=== PATIENT | female | born 1985 | race Caucasian/White ===

== ENCOUNTER 2020-06-07 07:07 | Inpatient (IN) | payer BC ==
[2020-06-07] MEDS ORDERED: Nalbuphine 10 MG/1 ML Vial IVPUSH PRN (08:54)
[2020-06-07] MEDS ORDERED: Sodium Chloride 0.9% 10 ML Syringe FLUSH PRN (08:54)
[2020-06-07] MEDS ORDERED: Misoprostol 200 MCG Tab RECTAL ONE (08:57)
[2020-06-07] MEDS ORDERED: Oxytocin/Lactated Ringers 10 UNIT/1,000 ML BAG IV SCH (09:00)
[2020-06-07] MEDS ORDERED: Oxytocin/Lactated Ringers 20 UNIT/1,000 ML BAG IV SCH ×2 (09:00→18:30)
--- NOTE | 2020-06-07 09:01 | PCM.LDHP ---
L&D History of Present Illness - General Date of Service: 06/07/20 Admit Problem/Dx: Patient Status Order with Admit Dx/Problem 06/07/20 08:55 Patient Status [ADT] Routine Admission Diagnosis/Problem Admission Diagnosis/Problem 39 weeks gestation of Source of Information: Patient History Limitations: Reports: No Limitations - History of Present Illness Introduction:: Kelly Coleman is a 34-year-old -0-3-4 female at 39 weeks 2 days (COLIN 06/12/2020) by an 11-week ultrasound who presents for an elective induction of labor. She reports that she has been having irregular contractions since her last visit but nothing that has been very painful or strong. She denies any leaking of fluid or vaginal bleeding. Reports good movement. Timing/Duration: Reports: intermittent Location, : Reports: Pelvic Quality: Reports: Pressure Severity: Mild Improves with: Reports: None Worsens with: Reports: None Associated Symptoms: Denies: vaginal bleeding, vaginal discharge, vaginal fluid Present Illness Comments:: Kelly Coleman is a 34-year-old -0-3-4 female at 39 weeks 2 days (COLIN 06/12/2020) by an 11-week ultrasound who presents for an elective induction of labor. She has had overall routine care throughout the with myself, Dr. Bryan, and with Dr. Chung. Her has been complicated by abnormal Pap smear and positive chlamydia infection. The chlamydia infection was diagnosed on 11/22/2019 and she was treated with azithromycin on 11/28/2019. She had a negative test of cure at 36 weeks gestational age. She had colposcopy done for HGSIL Pap smear that showed ROMULO-2-3 as well as ROMULO-1. ECC was not performed. Patient is planning to have LEEP after delivery. She had repeat colposcopy without biopsies in late that did not show any progression of the cervical abnormalities. She had an elevated 1 hour glucose tolerance test with a value of 137 but did not get a 3-hour glucose tolerance test done. She does have history of Graves' disease but her thyroid levels have been normal throughout the . Her GBS swab was negative. Her anatomy ultra sound was normal and did not show any abnormalities. Her is complicated by: * ROMULO-2-3 on biopsy of her cervix that was done on colposcopy on 12/26/2019. She had repeat colposcopy towards the end of the that did not show any significant changes in the cervix. Plan for LEEP procedure after delivery * Chlamydia infection during with treatment. She had negative test of cure on 12/26/2019 with negative test at 36 weeks gestational age. * Elevated 1 hour glucose tolerance test at 33 weeks gestational age with a value of 137. She did not have 3-hour glucose tolerance test done. * History of MRSA staph infection in 2009 with negative MRSA culture prior to delivery. 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 G1: 05/17/2008, 38 weeks, , female infant, 7 pounds 3 ounces, epidural for anesthesia, no complications G2: 10/05/2009, 4 weeks, miscarriage G3: 04/17/2011, 38 weeks, , male , 7 pounds 5 ounces, epidural for anesthesia, uterine atony after delivery and treated with medications G4: 02/07/2013, 11 weeks, miscarriage G5: 01/09/2014, 39 weeks, , female infant, 6 pounds 7 ounces, epidural for anesthesia, contractions starting at 6 months G6: 12/28/2014, 5 weeks, miscarriage G7: 12/18/2015, 39 weeks 1 day, , female infant, 6 pounds 14 ounces, epidural for anesthesia, no complications G8: Current labs Blood type: O+ Antibody screen: Negative First trimester hematocrit/hemoglobin: 40.5%/13.4 on 11/22/2019 Platelets: 284 on 11/22/2019 Urine culture: Mixed prudence suggestive of contamination Rubella status: Immune Hepatitis B surface antigen: Negative RPR: Negative HIV: Negative Gonorrhea: Negative Chlamydia: Positive, treated with azithromycin Anatomy ultrasound: Normal anatomy, anterior placenta Repeat gonorrhea: Negative on 12/26/2019 Repeat Chlamydia: Negative on 12/26/2019 One hour glucose tolerance test: 137 at 33 weeks gestational age Third trimester hematocrit/hemoglobin: 35.3%/11.4 on 04/26/2020 Platelets: 320 on 04/26/2020 GBS status: Negative - Related Data Allergies/Adverse Reactions: Allergies Allergy/AdvReac Type Severity Reaction Status Date / Time lidocaine Allergy Rash Verified 06/07/20 09:06 penicillin Allergy Hives Verified 06/07/20 09:06 Home Medications: Home Meds Propranolol [Inderal] 20 mg PO TID PRN 12/07/14 [History] Acetaminophen [Tylenol] 650 mg PO Q6H PRN #0 tablet 12/20/15 [Rx] Benzocaine/Menthol [Dermoplast Pain Relief [place]] 1 spray TOP ASDIRECTED PRN #0 canister 12/20/15 [Rx] Docusate Sodium [Colace] 100 mg PO BID PRN #0 cap 12/20/15 [Rx] Ibuprofen [IJD: Ibuprofen] 200 - 600 mg PO Q6H PRN #0 tablet 12/20/15 [Rx] witch Carmen [Tucks] 1 pad TOP ASDIRECTED PRN #0 pad 12/20/15 [Rx] Past Medical History Cardiovascular History: Reports: Other (See Below) Other Cardiovascular History: Tachycardia at times FIRE CONTROL TECHNICIAN B History: Reports: , Spontaneous , Other (See Below) : 8 Para: 4 Other OB/BYN History: D&C 2012 Endocrine/Metabolic History: Reports: Other (See Below) Other Endocrine/Metabolic History: Graves Disease Other Oncologic History: cancerous mole removed - Past Surgical History Cardiovascular Surgical History: Reports: None GI Surgical History: Reports: None Female Surgical History: Reports: None Dermatological Surgical History: Reports: Other (See Below) Social & Family History - Family History Family Medical History: No Pertinent Family History - Tobacco Use Tobacco Use Status *Q: Never Tobacco User Tobacco Use Within Last Twelve Months: No - Tobacco Core Measures Tobacco Use/Smoking Within Last 30 Days: No Smokeless Tobacco Use in Last 30 Days: No - Caffeine Use Caffeine Use: Reports: None - Alcohol Use Alcohol Use History: No - Recreational Drug Use Recreational Drug Use: No Drug Use in Last 12 Months: No - Living Situation & Occupation Living situation: Reports: , with Spouse, with Family H&P Review of Systems - Review of Systems: Review Of Systems: See Below General: Denies: Fever, Chills, Malaise, Fatigue HEENT: Denies: Headaches, Rhinitis, Post Nasal Drip, Sinus Congestion, Sore Throat, Visual Changes Pulmonary: Denies: Shortness of Breath, Wheezing, Pleuritic Chest Pain Cardiovascular: Denies: Chest Pain, Palpitations, Dyspnea on Exertion Gastrointestinal: Reports: Diarrhea (one episode earlier this week). Denies: Abdominal Pain, Constipation, Nausea, Vomiting Genitourinary: Denies: Dysuria, Frequency, Burning, Pain, Urgency Musculoskeletal: Reports: Back Pain (and hip pain of ) Skin: Denies: Rash, Lesions Psychiatric: Denies: Depression, Anxiety Neurological: Denies: Dizziness, Headache L&D Exam - Exam Exam: See Below - Vital Signs Weight: 84.368 kg - OB Specific Contraction Duration (sec): 30-45 Contraction Frequency (min): 3-4 Contraction Intensity: Mild Movement: Active Heart Tones: Present Heart Tones per Min: 125 (+15 x 15 accelerations, no decelerations) Heart Rate (FHR) Variability: Moderate (6-25 bmp) Presentation: Vertex Estimated Weight: 7-7.5 pounds by Jt - Costello Score Costello Score Cervix Position: Midposition Costello Score Consistency: Soft Costello Score Effacement: 31-50% (40) Costello Score Dilation: 1-2 cm (1 cm) Costello Score Infant's Station: -3 (-4) Costello Score Total: 5 - Exam General: Alert, Oriented HEENT: Conjunctiva Clear, EOMI Neck: Supple, Trachea Midline Lungs: Clear to Auscultation, Normal Respiratory Effort Cardiovascular: Regular Rate, Regular Rhythm GI/Abdominal Exam: Soft, Non-Tender, No Distention, Other (Gravid). No: Guarding, Rigid, Rebound Genitourinary: Normal external exam, Cervical dilitation (1 cm) Extremities: Normal Inspection, Pedal Edema (1+) Skin: Warm, Dry, Intact Psychiatric: Alert, Normal Affect, Normal Mood - Problem List (1) Chlamydia infection affecting in first trimester SNOMED Code(s): 64237076, 582889697 ICD Code: O98.811 - OTH MATERNAL INFEC/PARASTC DISEASES COMP PREG, FIRST TRI; A74.9 - CHLAMYDIAL INFECTION, UNSPECIFIED Status: Acute Current Visit: Yes (2) ROMULO II (cervical intraepithelial neoplasia II) SNOMED Code(s): 946328398 ICD Code: N87.1 - MODERATE CERVICAL DYSPLASIA Status: Acute Current Visit: Yes (3) ROMULO III (cervical intraepithelial neoplasia III) Status: Acute Current Visit: Yes (4) Abnormal glucose tolerance test (GTT) during , antepartum Status: Acute Current Visit: Yes (5) History of MRSA infection SNOMED Code(s): 157406649, 079938518 ICD Code: Z86.14 - PERSONAL HISTORY OF METHICILLIN RESIS STAPH INFECTION Status: Acute Current Visit: Yes (6) 39 weeks gestation of SNOMED Code(s): 66364595 ICD Code: Z3A.39 - 39 WEEKS GESTATION OF Status: Acute Current Visit: No Problem List Initiated/Reviewed/Updated: Yes Orders Last 24hrs: Active Orders 24 hr Category Date Time Status Patient Status [ADT] Routine ADT 06/07/20 08:55 Ordered Activity as Tolerated [RC] PFP Care 06/07/20 08:54 Ordered Communication Order [RC] ASDIRECTED Care 06/07/20 08:54 Ordered Heart Tones [RC] ASDIRECTED Care 06/07/20 08:55 Ordered Non Stress Test [RC] PER UNIT ROUTINE Care 06/07/20 08:54 Ordered Notify Provider Vital Signs [RC] PRN Care 06/07/20 08:56 Ordered Notify Provider [RC] PFP Care 06/07/20 08:54 Ordered Notify Provider [RC] PRN Care 06/07/20 08:54 Ordered Peripheral IV Care [RC] . DIRECTED Care 06/07/20 08:55 Ordered Pump Management, Intrathecal [RC] ASDIRECTED Care 06/07/20 08:56 Ordered Urinary Catheter Assessment [RC] ASDIRECTED Care 06/07/20 08:54 Ordered Vital Signs [RC] PER UNIT ROUTINE Care 06/07/20 08:54 Ordered Regular Diet [DIET] Diet 06/07/20 Breakfast Ordered CBC WITH AUTO DIFF [HEME] Routine Lab 06/07/20 08:54 Ordered CORONAVIRUS COVID-19 ISHMAEL [MOLEC] Stat Lab 06/07/20 07:21 Received RAPID PLASMA REAGIN,RPR [CHEM] Routine Lab 06/07/20 08:54 Ordered TYPE AND SCREEN [BBK] Routine Lab 06/07/20 08:59 Ordered Lactated Ringers [Ringers, Lactated] 1,000 ml Med 06/07/20 09:00 Ordered IV ASDIRECTED Nalbuphine [Nubain] Med 06/07/20 08:54 Ordered 10 mg IVPUSH Q2H PRN Oxytocin/Lactated Ringers [Pitocin in LR 10 Units/1,000 Med 06/07/20 09:00 Ordered ML] 10 unit in 1,000 ml IV TITRATE Oxytocin/Lactated Ringers [Pitocin in LR 20 Units/1,000 Med 06/07/20 09:00 Ordered ML] 20 unit in 1,000 ml IV .CONTINUOUS Sodium Chloride 0.9% [Saline Flush] Med 06/07/20 08:54 Ordered 10 ml FLUSH ASDIRECTED PRN miSOPROStoL [Cytotec] Med 06/07/20 08:57 Once 1,000 mcg RECTAL ONETIME ONE Electronic Heart Tones Ext w TOCO [WOMSER] Ot 06/07/20 08:54 Ordered Routine Electronic Heart Tones Internal [WOMSER] Per Unit Ot 06/07/20 08:54 Ordered Routine Peripheral IV Insertion Adult [OM.PC] Routine Ot 06/07/20 08:54 Ordered Resuscitation Status Routine Resus Stat 06/07/20 08:54 Ordered Medication Orders Lactated Ringer's (Ringers, Lactated) 1,000 mls @ 100 mls/hr IV ASDIRECTED SHUKRI Oxytocin/Lactated Ringer's (Pitocin In Lr 10 Units/1,000 Ml) 10 unit in 1,000 mls @ 12 mls/hr IV TITRATE SHUKRI; Protocol Oxytocin/Lactated Ringer's (Pitocin In Lr 20 Units/1,000 Ml) 20 unit in 1,000 mls @ 100 mls/hr IV .CONTINUOUS SHUKRI Misoprostol (Misoprostol 200 Mcg Tab) 1,000 mcg RECTAL ONETIME ONE Stop: 06/07/20 08:58 Nalbuphine HCl (Nalbuphine 10 Mg/1 Ml Vial) 10 mg IVPUSH Q2H PRN PRN Reason: Pain Sodium Chloride (Sodium Chloride 0.9% 10 Ml Syringe) 10 ml FLUSH ASDIRECTED PRN PRN Reason: Keep Vein Open Assessment/Plan Comment:: Kelly Coleman is a 34-year-old -0-3-4 female at 39 weeks 2 days (COLIN 06/12/2020) by an 11-week ultrasound who presents for an elective induction of labor. Refer to observation for elective induction of labor Start Pitocin for induction of labor Continuous monitoring Place IV and have Lactated Ringer's at 125 ml/hr May have small amounts of regular diet Activity as tolerated May have epidural as desired Plans to breast-feed after delivery Plan for artificial rupture membranes once cervix is more dilated Anticipate vaginal delivery unless otherwise indicated Roland Bryan MD 10:52 AM 06/07/2020
[2020-06-07] MEDS: Lactated Ringers 1,000 ML IV SCH ×3 (09:14→12:19)
[2020-06-07] MEDS ORDERED: fentaNYL 100 MCG/2 ML SDV ONE (11:20)
[2020-06-07] MEDS ORDERED: fentaNYL 100 MCG/2 ML SDV EPIDUR PRN (11:23)
[2020-06-07] MEDS ORDERED: Bupivacaine/fentaNYL/NS 100 ML Bag EPIDUR PRN (11:23)
[2020-06-07] MEDS ORDERED: diphenhydrAMINE 50 MG/ML SDV IVPUSH PRN (11:23)
--- NOTE | 2020-06-07 11:29 | PCM.PREANE ---
Preanesthetic Assessment - Procedure Proposed Procedure: Labor epidural - Anesthesia/Transfusion/Family Hx Anesthesia History: Prior Anesthesia Without Reaction Transfusion History: No Prior Transfusion(s) Type of Transfusion Reactions: Reports: Unknown - Review of Systems General: No Symptoms Pulmonary: No Symptoms Cardiovascular: No Symptoms Gastrointestinal: No Symptoms Neurological: No Symptoms Other: Reports: Thyroid Problems (not on meds currently) - Physical Assessment Vital Signs: Last Vital Signs Temp 99.2 F 06/07/20 08:54 Pulse 91 06/07/20 08:54 Resp 16 06/07/20 08:54 BP 118/78 06/07/20 08:54 Pulse Ox Height: 1.57 m Weight: 84.368 kg ASA Class: 2 Mental Status: Alert & Oriented x3 Airway Class: Mallampati = 2 Dentition: Reports: Normal Dentition Thyro-Mental Finger Breadths: 3 Mouth Opening Finger Breadths: 3 ROM/Head Extension: Full Lungs: Clear to Auscultation, Normal Respiratory Effort Cardiovascular: Regular Rate, Regular Rhythm - Lab Values: Laboratory Last Values POC Glucose 79 mg/dL (70-105) 06/07/20 09:23 SARS-CoV-2 RNA (ISHMAEL) Negative (NEGATIVE) 06/07/20 07:21 Blood Type O POSITIVE 06/07/20 09:11 Gel Antibody Screen Negative 06/07/20 09:11 - Allergies Allergies/Adverse Reactions: Allergies Allergy/AdvReac Type Severity Reaction Status Date / Time lidocaine Allergy Rash Verified 06/07/20 09:06 penicillin Allergy Hives Verified 06/07/20 09:06 - Acknowledgements Anesthesia Type Planned: Epidural Pt an Appropriate Candidate for the Planned Anesthesia: Yes Alternatives and Risks of Anesthesia Discussed w Pt/Guardian: Yes Pt/Guardian Understands and Agrees with Anesthesia Plan: Yes PreAnesthesia Questionnaire Cardiovascular History: Reports: Other (See Below) Other Cardiovascular History: Tachycardia at times 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: , Spontaneous , Other (See Below) Other OB/BYN History: D&C 2013 Endocrine/Metabolic History: Reports: Other (See Below) Other Endocrine/Metabolic History: Graves Disease Other Oncologic History: cancerous mole removed - Past Surgical History GI Surgical History: Reports: None Female Surgical History: Reports: None - SUBSTANCE USE Tobacco Use Status *Q: Never Tobacco User Tobacco Use Within Last Twelve Months: No Second Hand Smoke Exposure: No Recreational Drug Use History: No - HOME MEDS Home Medications: Home Meds Propranolol [Inderal] 20 mg PO TID PRN 12/07/14 [History] Acetaminophen [Tylenol] 650 mg PO Q6H PRN #0 tablet 12/20/15 [Rx] Benzocaine/Menthol [Dermoplast Pain Relief [place]] 1 spray TOP ASDIRECTED PRN #0 canister 12/20/15 [Rx] Docusate Sodium [Colace] 100 mg PO BID PRN #0 cap 12/20/15 [Rx] Ibuprofen [IJD: Ibuprofen] 200 - 600 mg PO Q6H PRN #0 tablet 12/20/15 [Rx] witch Carmen [Tucks] 1 pad TOP ASDIRECTED PRN #0 pad 12/20/15 [Rx] - CURRENT (IN HOUSE) MEDS Current Meds: Current Medications Lactated Ringer's (Ringers, Lactated) 1,000 mls @ 100 mls/hr IV ASDIRECTED SHUKRI Last Admin: 06/07/20 09:14 Dose: 100 mls/hr Documented by: Oxytocin/Lactated Ringer's (Pitocin In Lr 10 Units/1,000 Ml) 10 unit in 1,000 mls @ 12 mls/hr IV TITRATE SHUKRI; Protocol Last Titration: 06/07/20 11:00 Dose: 8 munits/min, 48 mls/hr Documented by: Oxytocin/Lactated Ringer's (Pitocin In Lr 20 Units/1,000 Ml) 20 unit in 1,000 mls @ 100 mls/hr IV .CONTINUOUS SHUKRI Nalbuphine HCl (Nalbuphine 10 Mg/1 Ml Vial) 10 mg IVPUSH Q2H PRN PRN Reason: Pain Sodium Chloride (Sodium Chloride 0.9% 10 Ml Syringe) 10 ml FLUSH ASDIRECTED PRN PRN Reason: Keep Vein Open Discontinued Medications Fentanyl (Fentanyl 100 Mcg/2 Ml Sdv) Confirm Administered Dose 100 mcg .ROUTE .STK-MED ONE Stop: 06/07/20 11:21 Misoprostol (Misoprostol 200 Mcg Tab) 1,000 mcg RECTAL ONETIME ONE Stop: 06/07/20 08:58
[2020-06-07] MEDS: ePHEDrine 50 MG/ML SDV IVPUSH PRN ×2 (12:47→13:03)
--- NOTE | 2020-06-07 14:34 | PCM.PNLD ---
<Navin Brunson - Last Filed: 06/07/20 14:28> Labor Progress Note - VS & Meds Vital Signs: Last Vital Signs Temp 99.2 F 06/07/20 08:54 Pulse 91 06/07/20 08:54 Resp 16 06/07/20 08:54 BP 118/78 06/07/20 08:54 Pulse Ox Active Medications: Current Medications Diphenhydramine HCl (Diphenhydramine 50 Mg/Ml Sdv) 25 mg IVPUSH Q6H PRN PRN Reason: pruritis Ephedrine Sulfate (Ephedrine 50 Mg/Ml Sdv) 5 mg IVPUSH ASDIRECTED PRN PRN Reason: Hypotension Last Admin: 06/07/20 13:03 Dose: 5 mg Documented by: Fentanyl (Fentanyl 100 Mcg/2 Ml Sdv) 100 mcg EPIDUR Q3H PRN PRN Reason: Pain Last Admin: 06/07/20 11:49 Dose: 100 mcg Documented by: Fentanyl/Bupivacaine HCl (Bupivacaine/Fentanyl/Ns 100 Ml Bag) 100 ml EPIDUR ASDIRECTED PRN PRN Reason: Pain Last Admin: 06/07/20 12:14 Dose: 100 ml Documented by: Lactated Ringer's (Ringers, Lactated) 1,000 mls @ 100 mls/hr IV ASDIRECTED SHUKRI Last Admin: 06/07/20 12:19 Dose: 100 mls/hr Documented by: Oxytocin/Lactated Ringer's (Pitocin In Lr 10 Units/1,000 Ml) 10 unit in 1,000 m ls @ 12 mls/hr IV TITRATE SHUKRI; Protocol Last Titration: 06/07/20 14:01 Dose: 16 munits/min, 96 mls/hr Documented by: Oxytocin/Lactated Ringer's (Pitocin In Lr 20 Units/1,000 Ml) 20 unit in 1,000 mls @ 100 mls/hr IV .CONTINUOUS SHUKRI Nalbuphine HCl (Nalbuphine 10 Mg/1 Ml Vial) 10 mg IVPUSH Q2H PRN PRN Reason: Pain Sodium Chloride (Sodium Chloride 0.9% 10 Ml Syringe) 10 ml FLUSH ASDIRECTED PRN PRN Reason: Keep Vein Open Discontinued Medications Fentanyl (Fentanyl 100 Mcg/2 Ml Sdv) Confirm Administered Dose 100 mcg .ROUTE .STK-MED ONE Stop: 06/07/20 11:21 Misoprostol (Misoprostol 200 Mcg Tab) 1,000 mcg RECTAL ONETIME ONE Stop: 06/07/20 08:58 - Uterine Contractions Uterine Monitoring Mode: External [place] Contraction Frequency (min): 2-3 minutes Contraction Duration (sec): 65-70 Contraction Intensity: Mild - Monitoring Monitor Mode: Doppler/Auscultation Heart Rate (FHR) Baseline: 130 Heart Rate (FHR) Variability: Moderate (6-25 bmp) Accelerations: Present, 15x15 Decelerations: Late, Intermittent (<50% x 20 min) (two late declerations after AROM ) Strip Review: Category II - Vaginal Exam Dilation (cm): 4 cm Effacement (Percent): 50% Station: -2 Cervical Position: Midposition Sterile Vaginal Exam Performed By: Roland Bryan (Navin Brunson) - Labor Progress (Free Text) Labor Progress: AROM was performed at approximately 1415 with moderate amount of clear fluid. Mother and baby tolerated the procedure well. <Roland Bryan - Last Filed: 06/07/20 15:37> Labor Progress Note - VS & Meds Vital Signs: Last Vital Signs Temp 37.3 C 06/07/20 08:54 Pulse 91 06/07/20 08:54 Resp 16 06/07/20 08:54 BP 118/78 06/07/20 08:54 Pulse Ox Active Medications: Current Medications Diphenhydramine HCl (Diphenhydramine 50 Mg/Ml Sdv) 25 mg IVPUSH Q6H PRN PRN Reason: pruritis Ephedrine Sulfate (Ephedrine 50 Mg/Ml Sdv) 5 mg IVPUSH ASDIRECTED PRN PRN Reason: Hypotension Last Admin: 06/07/20 13:03 Dose: 5 mg Documented by: Fentanyl (Fentanyl 100 Mcg/2 Ml Sdv) 100 mcg EPIDUR Q3H PRN PRN Reason: Pain Last Admin: 06/07/20 11:49 Dose: 100 mcg Documented by: Fentanyl/Bupivacaine HCl (Bupivacaine/Fentanyl/Ns 100 Ml Bag) 100 ml EPIDUR ASDIRECTED PRN PRN Reason: Pain Last Admin: 06/07/20 12:14 Dose: 100 ml Documented by: Lactated Ringer's (Ringers, Lactated) 1,000 mls @ 100 mls/hr IV ASDIRECTED SHUKRI Last Admin: 06/07/20 12:19 Dose: 100 mls/hr Documented by: Oxytocin/Lactated Ringer's (Pitocin In Lr 10 Units/1,000 Ml) 10 unit in 1,000 mls @ 12 mls/hr IV TITRATE SHUKRI; Protocol Last Titration: 06/07/20 14:01 Dose: 16 munits/min, 96 mls/hr Documented by: Oxytocin/Lactated Ringer's (Pitocin In Lr 20 Units/1,000 Ml) 20 unit in 1,000 mls @ 100 mls/hr IV .CONTINUOUS SHUKRI Nalbuphine HCl (Nalbuphine 10 Mg/1 Ml Vial) 10 mg IVPUSH Q2H PRN PRN Reason: Pain Sodium Chloride (Sodium Chloride 0.9% 10 Ml Syringe) 10 ml FLUSH ASDIRECTED PRN PRN Reason: Keep Vein Open Discontinued Medications Fentanyl (Fentanyl 100 Mcg/2 Ml Sdv) Confirm Administered Dose 100 mcg .ROUTE .STK-MED ONE Stop: 06/07/20 11:21 Last Admin: 06/07/20 15:24 Dose: Not Given Documented by: Misoprostol (Misoprostol 200 Mcg Tab) 1,000 mcg RECTAL ONETIME ONE Stop: 06/07/20 08:58 - Labor Progress (Free Text) Labor Progress: I have seen and evaluated the patient with the medical student and agree with the assessment as above. We will continue with Pitocin for induction of labor and anticipate vaginal delivery unless otherwise indicated. Roland Bryan MD 3:37 PM 06/07/2020
[2020-06-07] MEDS ORDERED: Lidocaine 1.5% with EPINEPHrine 1:200,000 5 ML Amp ONE (16:00)
--- NOTE | 2020-06-07 18:14 | PCM.DEL ---
<Navin Brunson - Last Filed: 06/07/20 18:26> L & D Note - General Info Date of Service: 06/07/20 Mother's Due Date: 06/12/20 - Delivery Note Labor: Spontaneous, Augmented by ARM Delivery Outcome: Livebirth Infant Delivery Method: Spontaneous Vaginal Delivery-Single Delivery Mode: Spontaneous Presentation: Left Occiput Anterior ([facility]) Nuchal Cord: None Anesthesia Type: Epidural Amniotic Fluid Description: Clear Episiotomy Type: None Laceration: None Placenta: Intact, Spontaneous Cord: 3 Vessels Estimated Blood Loss: 1,000 Resuscitation Needed: No : Bulb Syringe, Stimulated, Warmed Provider: Ronni Bates Score 1 min: 8 Score 5 min: 9 Second Stage Interventions: Reports: Encouragement Given Delivery Comments (Free Text/Narrative):: Stage I: Kelly Coleman is a 34-year-old -0-3-4 female at 39 weeks 2 days (COLIN 06/12/2020) by an 11-week ultrasound who presents for an elective induction of labor. Pitocin was given, an epidural was placed and AROM was performed with clear fluid. The patient progressed to complete and pushing. Stage II: of a live male infant weighing 3040 g (6 lbs 11.2 ounces) at 1744 on 06/07/20 in the [facility] with APGARs of 8/9. No nuchal cord present. The infant was placed on the mother's abdomen and was warmed and stimulated. The cord was clamped and cut by the infant's father after a period of delayed cord clamping. Stage III: Placenta was delivered intact, spontaneous. Noted three vessel cord. The vaginal mucosa was inspected and no lacerations were seen. EBL of 1000 mL. Rectal cytotec 1000 micrograms was placed rectally, and Pitocin was started. Fundal massage demonstrated a firm uterus without active bleeding. Mother and stable to recovery. - General Info Date of Service: 06/07/20 - Patient Data Vitals - Most Recent: Last Vital Signs Temp 99.2 F 06/07/20 08:54 Pulse 91 06/07/20 08:54 Resp 16 06/07/20 08:54 BP 118/78 06/07/20 08:54 Pulse Ox Weight - Most Recent: 84.368 kg I&O - Last 24 Hours: Intake & Output 06/07/20 06/07/20 06/07/20 06:59 14:59 22:59 Intake Total 0 Balance 0 Lab Results Last 24 Hours: Laboratory Results - last 24 hr 06/07/20 06/07/20 06/07/20 Range/Units 07:21 09:11 09:11 WBC 8.62 (3.98-10.04) K/mm3 RBC 3.77 L (3.98-5.22) M/mm3 Hgb 10.5 L (11.2-15.7) gm/dl Hct 33.2 L (34.1-44.9) % MCV 88.1 (79.4-94.8) fl MCH 27.9 (25.6-32.2) pg MCHC 31.6 L (32.2-35.5) g/dl RDW Std Deviation 45.2 (36.4-46.3) fL Plt Count 252 (182-369) K/mm3 MPV 10.0 (9.4-12.3) fl Neut % (Auto) 75.7 H (34.0-71.1) % Lymph % (Auto) 15.1 L (19.3-51.7) % [place] % (Auto) 8.2 (4.7-12.5) % Eos % (Auto) 0.2 L (0.7-5.8) Baso % (Auto) 0.2 (0.1-1.2) % Neut # (Auto) 6.52 H (1.56-6.13) K/mm3 Lymph # (Auto) 1.30 (1.18-3.74) K/mm3 [place] # (Auto) 0.71 H (0.24-0.36) K/mm3 Eos # (Auto) 0.02 L (0.04-0.36) K/mm3 Baso # (Auto) 0.02 (0.01-0.08) K/mm3 POC Glucose (70-105) mg/dL SARS-CoV-2 RNA (ISHMAEL) Negative (NEGATIVE) Blood Type O POSITIVE Gel Antibody Screen Negative 06/07/20 06/07/20 06/07/20 Range/Units 09:23 13:09 17:12 WBC (3.98-10.04) K/mm3 RBC (3.98-5.22) M/mm3 Hgb (11.2-15.7) gm/dl Hct (34.1-44.9) % MCV (79.4-94.8) fl MCH (25.6-32.2) pg MCHC (32.2-35.5) g/dl RDW Std Deviation (36.4-46.3) fL Plt Count (182-369) K/mm3 MPV (9.4-12.3) fl Neut % (Auto) (34.0-71.1) % Lymph % (Auto) (19.3-51.7) % [place] % (Auto) (4.7-12.5) % Eos % (Auto) (0.7-5.8) Baso % (Auto) (0.1-1.2) % Neut # (Auto) (1.56-6.13) K/mm3 Lymph # (Auto) (1.18-3.74) K/mm3 [place] # (Auto) (0.24-0.36) K/mm3 Eos # (Auto) (0.04-0.36) K/mm3 Baso # (Auto) (0.01-0.08) K/mm3 POC Glucose 79 71 89 (70-105) mg/dL SARS-CoV-2 RNA (ISHMAEL) (NEGATIVE) Blood Type Gel Antibody Screen Med Orders - Current: Current Medications Diphenhydramine HCl (Diphenhydramine 50 Mg/Ml Sdv) 25 mg IVPUSH Q6H PRN PRN Reason: pruritis Ephedrine Sulfate (Ephedrine 50 Mg/Ml Sdv) 5 mg IVPUSH ASDIRECTED PRN PRN Reason: Hypotension Last Admin: 06/07/20 13:03 Dose: 5 mg Documented by: Fentanyl (Fentanyl 100 Mcg/2 Ml Sdv) 100 mcg EPIDUR Q3H PRN PRN Reason: Pain Last Admin: 06/07/20 11:49 Dose: 100 mcg Documented by: Fentanyl/Bupivacaine HCl (Bupivacaine/Fentanyl/Ns 100 Ml Bag) 100 ml EPIDUR ASDIRECTED PRN PRN Reason: Pain Last Admin: 06/07/20 12:14 Dose: 100 ml Documented by: Lactated Ringer's (Ringers, Lactated) 1,000 mls @ 100 mls/hr IV ASDIRECTED SHUKRI Last Admin: 06/07/20 12:19 Dose: 100 mls/hr Documented by: Oxytocin/Lactated Ringer's (Pitocin In Lr 10 Units/1,000 Ml) 10 unit in 1,000 mls @ 12 mls/hr IV TITRATE SHUKRI; Protocol Last Titration: 06/07/20 14:01 Dose: 16 munits/min, 96 mls/hr Documented by: Oxytocin/Lactated Ringer's (Pitocin In Lr 20 Units/1,000 Ml) 20 unit in 1,000 mls @ 100 mls/hr IV .CONTINUOUS SHUKRI Nalbuphine HCl (Nalbuphine 10 Mg/1 Ml Vial) 10 mg IVPUSH Q2H PRN PRN Reason: Pain Sodium Chloride (Sodium Chloride 0.9% 10 Ml Syringe) 10 ml FLUSH ASDIRECTED PRN PRN Reason: Keep Vein Open Discontinued Medications Fentanyl (Fentanyl 100 Mcg/2 Ml Sdv) Confirm Administered Dose 100 mcg .ROUTE .STK-MED ONE Stop: 06/07/20 11:21 Last Admin: 06/07/20 15:24 Dose: Not Given Documented by: Misoprostol (Misoprostol 200 Mcg Tab) 1,000 mcg RECTAL ONETIME ONE Stop: 06/07/20 08:58 Last Admin: 06/07/20 17:52 Dose: 1,000 mcg Documented by: - Problem List & Annotations (1) Vaginal delivery SNOMED Code(s): 173550156 Code(s): O80 - ENCOUNTER FOR FULL-TERM UNCOMPLICATED DELIVERY Status: Acute Current Visit: Yes (2) 39 weeks gestation of SNOMED Code(s): 76566291 Code(s): Z3A.39 - 39 WEEKS GESTATION OF Status: Acute Current Visit: No (3) hemorrhage SNOMED Code(s): 06900593 Code(s): O72.1 - OTHER IMMEDIATE HEMORRHAGE Status: Acute Current Visit: Yes - Problem List Review Problem List Initiated/Reviewed/Updated: Yes - Assessment Assessment:: of a live male infant weighing 3040 g (6 lbs 11.2 ounces) at 1744 on 06/07/20 in the [facility] with APGARs of 8/9 to a 34-year-old -0-3-4 female at 39 weeks 2 days (COLIN 06/12/2020) by an 11-week ultrasound who presented for an elective induction of labor. - Plan Plan:: Kelly Coleman is a 34-year-old -0-3-4 female at 39 weeks 2 days (COLIN 06/12/2020) by an 11-week ultrasound who presents for an elective induction of labor. PPD#0 of a live male infant weighing 3040 g (6 lbs 11.2 ounces) at 1744 on 06/07/20 in the [place] with APGARs of 8/9. Rectal Cytotec 1000 micrograms placed for concerns of hemorrhage care per unit routine Regular diet Activity as tolerated Plans to breast-feed Anticipate discharge in 24-48 hours pending insurance auditor's recommendation <Roland Bryan - Last Filed: 06/07/20 18:41> - Patient Data Vitals - Most Recent: Last Vital Signs Temp 37.3 C 06/07/20 08:54 Pulse 91 06/07/20 08:54 Resp 16 06/07/20 08:54 BP 118/78 06/07/20 08:54 Pulse Ox I&O - Last 24 Hours: Intake & Output 06/07/20 06/07/20 06/07/20 06:59 14:59 22:59 Intake Total 0 Balance 0 Lab Results Last 24 Hours: Laboratory Results - last 24 hr 06/07/20 06/07/20 06/07/20 Range/Units 07:21 09:11 09:11 WBC 8.62 (3.98-10.04) K/mm3 RBC 3.77 L (3.98-5.22) M/mm3 Hgb 10.5 L (11.2-15.7) gm/dl Hct 33.2 L (34.1-44.9) % MCV 88.1 (79.4-94.8) fl MCH 27.9 (25.6-32.2) pg MCHC 31.6 L (32.2-35.5) g/dl RDW Std Deviation 45.2 (36.4-46.3) fL Plt Count 252 (182-369) K/mm3 MPV 10.0 (9.4-12.3) fl Neut % (Auto) 75.7 H (34.0-71.1) % Lymph % (Auto) 15.1 L (19.3-51.7) % [place] % (Auto) 8.2 (4.7-12.5) % Eos % (Auto) 0.2 L (0.7-5.8) Baso % (Auto) 0.2 (0.1-1.2) % Neut # (Auto) 6.52 H (1.56-6.13) K/mm3 Lymph # (Auto) 1.30 (1.18-3.74) K/mm3 [place] # (Auto) 0.71 H (0.24-0.36) K/mm3 Eos # (Auto) 0.02 L (0.04-0.36) K/mm3 Baso # (Auto) 0.02 (0.01-0.08) K/mm3 POC Glucose (70-105) mg/dL SARS-CoV-2 RNA (ISHMAEL) Negative (NEGATIVE) Blood Type O POSITIVE Gel Antibody Screen Negative 06/07/20 06/07/20 06/07/20 Range/Units 09:23 13:09 17:12 WBC (3.98-10.04) K/mm3 RBC (3.98-5.22) M/mm3 Hgb (11.2-15.7) gm/dl Hct (34.1-44.9) % MCV (79.4-94.8) fl MCH (25.6-32.2) pg MCHC (32.2-35.5) g/dl RDW Std Deviation (36.4-46.3) fL Plt Count (182-369) K/mm3 MPV (9.4-12.3) fl Neut % (Auto) (34.0-71.1) % Lymph % (Auto) (19.3-51.7) % [place] % (Auto) (4.7-12.5) % Eos % (Auto) (0.7-5.8) Baso % (Auto) (0.1-1.2) % Neut # (Auto) (1.56-6.13) K/mm3 Lymph # (Auto) (1.18-3.74) K/mm3 [place] # (Auto) (0.24-0.36) K/mm3 Eos # (Auto) (0.04-0.36) K/mm3 Baso # (Auto) (0.01-0.08) K/mm3 POC Glucose 79 71 89 (70-105) mg/dL SARS-CoV-2 RNA (ISHMAEL) (NEGATIVE) Blood Type Gel Antibody Screen Med Orders - Current: Current Medications Acetaminophen (Acetaminophen 325 Mg Tab) 650 mg PO Q6H PRN PRN Reason: mild pain or fever Benzocaine/Menthol (Benzocaine/Menthol 20%-0.5% [place] 56 Gm Canister) 0 gm TOP ASDIRECTED PRN PRN Reason: Perineal Comfort Measure Docusate Sodium (Docusate Sodium 100 Mg Cap) 100 mg PO BID PRN PRN Reason: Constipation Hydrocortisone Acetate (Hydrocortisone Acetate 25 Mg Supp) 25 mg RECTAL BID PRN PRN Reason: Hemorrhoid pain Oxytocin/Lactated Ringer's (Pitocin In Lr 20 Units/1,000 Ml) 20 unit in 1,000 mls @ 500 mls/hr IV SEECOMMENT SHUKRI Ibuprofen (Ibuprofen 600 Mg Tab) 600 mg PO Q6H PRN PRN Reason: Mild pain or fever Prenat Multivit/[place]/Iron/Folic Ac ( Multivitamin With Calcium/Folic Acid/Iron Tab) 1 each PO DAILY SHUKRI Witch Cristina (Witch Cristina Medicated Pads 40/Jar) 1 pad TOP ASDIRECTED PRN PRN Reason: Perineal Comfort Measure Discontinued Medications Diphenhydramine HCl (Diphenhydramine 50 Mg/Ml Sdv) 25 mg IVPUSH Q6H PRN PRN Reason: pruritis Ephedrine Sulfate (Ephedrine 50 Mg/Ml Sdv) 5 mg IVPUSH ASDIRECTED PRN PRN Reason: Hypotension Last Admin: 06/07/20 13:03 Dose: 5 mg Documented by: Fentanyl (Fentanyl 100 Mcg/2 Ml Sdv) Confirm Administered Dose 100 mcg .ROUTE .STK-MED ONE Stop: 06/07/20 11:21 Last Admin: 06/07/20 15:24 Dose: Not Given Documented by: Fentanyl (Fentanyl 100 Mcg/2 Ml Sdv) 100 mcg EPIDUR Q3H PRN PRN Reason: Pain Last Admin: 06/07/20 11:49 Dose: 100 mcg Documented by: Fentanyl/Bupivacaine HCl (Bupivacaine/Fentanyl/Ns 100 Ml Bag) 100 ml EPIDUR ASDIRECTED PRN PRN Reason: Pain Last Admin: 06/07/20 12:14 Dose: 100 ml Documented by: Lactated Ringer's (Ringers, Lactated) 1,000 mls @ 100 mls/hr IV ASDIRECTED SHUKRI Last Admin: 06/07/20 12:19 Dose: 100 mls/hr Documented by: Oxytocin/Lactated Ringer's (Pitocin In Lr 10 Units/1,000 Ml) 10 unit in 1,000 mls @ 12 mls/hr IV TITRATE SHUKRI; Protocol Last Titration: 06/07/20 14:01 Dose: 16 munits/min, 96 mls/hr Documented by: Oxytocin/Lactated Ringer's (Pitocin In Lr 20 Units/1,000 Ml) 20 unit in 1,000 mls @ 100 mls/hr IV .CONTINUOUS SHUKRI Last Admin: 06/07/20 18:36 Dose: 100 mls/hr Documented by: Oxytocin/Lactated Ringer's (Pitocin In Lr 10 Units/1,000 Ml) Confirm Administered Dose 10 unit in 1,000 mls @ as directed IV .STK-MED ONE Stop: 06/07/20 18:33 Misoprostol (Misoprostol 200 Mcg Tab) 1,000 mcg RECTAL ONETIME ONE Stop: 06/07/20 08:58 Last Admin: 06/07/20 17:52 Dose: 1,000 mcg Documented by: Nalbuphine HCl (Nalbuphine 10 Mg/1 Ml Vial) 10 mg IVPUSH Q2H PRN PRN Reason: Pain Sodium Chloride (Sodium Chloride 0.9% 10 Ml Syringe) 10 ml FLUSH ASDIRECTED PRN PRN Reason: Keep Vein Open - Problem List & Annotations (1) Chlamydia infection affecting in first trimester SNOMED Code(s): 90189646, 799160331 Code(s): O98.811 - OTH MATERNAL INFEC/PARASTC DISEASES COMP PREG, FIRST TRI; A74.9 - CHLAMYDIAL INFECTION, UNSPECIFIED Status: Acute Current Visit: Yes (2) ROMULO II (cervical intraepithelial neoplasia II) SNOMED Code(s): 437245214 Code(s): N87.1 - MODERATE CERVICAL DYSPLASIA Status: Acute Current Visit: Yes (3) ROMULO III (cervical intraepithelial neoplasia III) Status: Acute Current Visit: Yes (4) Abnormal glucose tolerance test (GTT) during , antepartum Status: Acute Current Visit: Yes (5) History of MRSA infection SNOMED Code(s): 922019538, 837626498 Code(s): Z86.14 - PERSONAL HISTORY OF METHICILLIN RESIS STAPH INFECTION Status: Acute Current Visit: Yes (6) 39 weeks gestation of SNOMED Code(s): 33323875 Code(s): Z3A.39 - 39 WEEKS GESTATION OF Status: Acute Current Visit: No - My Orders Last 24 Hours: My Active Orders 06/07/20 08:54 Resuscitation Status Routine 06/07/20 09:11 HEP C VIRUS AB [REF] Routine RAPID PLASMA REAGIN,RPR [CHEM] Routine - Assessment Assessment:: I was present during the delivery procedure with the student and agree with her assessment and plan. I was present for the [place] and critical portions of the delivery and assisted as needed during the delivery of the infant and placenta. Roland Bryan MD 6:40 PM 06/07/2020
[2020-06-07] MEDS ORDERED: Benzocaine/Menthol 20%-0.5% Spray 56 GM Canister TOP PRN (18:29)
[2020-06-07] MEDS ORDERED: Witch Hazel Medicated Pads 40/Jar TOP PRN (18:29)
[2020-06-07] MEDS ORDERED: Hydrocortisone Acetate 25 MG Supp RECTAL PRN (18:29)
[2020-06-07] MEDS ORDERED: Acetaminophen 325 MG Tab PO PRN (18:29)
[2020-06-07] MEDS ORDERED: Docusate Sodium 100 MG Cap PO PRN (18:29)
[2020-06-07] MEDS ORDERED: Ibuprofen 600 MG Tab PO PRN (18:29)
[2020-06-07] MEDS ORDERED: Oxytocin/Lactated Ringers 10 UNIT/1,000 ML BAG IV ONE (18:32)
--- NOTE | 2020-06-08 11:18 | PCM.PNPP ---
<Navin Brunson - Last Filed: 06/08/20 11:14> - General Info Date of Service: 06/08/20 Admission Dx/Problem (Free Text): Patient Status Order with Admit Dx/Problem 06/07/20 08:55 Patient Status [ADT] Routine Admission Diagnosis/Problem Admission Diagnosis/Problem 39 weeks gestation of Subjective Update: Patient is doing well. She has been up ambulating to go to the bathroom without much dizziness. She reports that is going okay. Bleeding is minimal per patient report Functional Status: Reports: Pain Controlled, Tolerating Diet, Ambulating, U rinating - General Info Date of Service: 06/08/20 - Patient Data Vital Signs - Most Recent: Last Vital Signs Temp 98.2 F 06/08/20 08:18 Pulse 97 06/08/20 08:18 Resp 16 06/08/20 08:18 BP 117/71 06/08/20 08:18 Pulse Ox 99 06/08/20 08:18 Weight - Most Recent: 84.368 kg I&O - Last 24 Hours: Intake & Output 06/07/20 06/08/20 06/08/20 22:59 06:59 14:59 Intake Total 0 Balance 0 Lab Results - Last 24 Hours: Laboratory Results - last 24 hr 06/07/20 06/07/20 06/07/20 Range/Units 09:11 09:11 13:09 WBC 8.62 (3.98-10.04) K/mm3 RBC 3.77 L (3.98-5.22) M/mm3 Hgb 10.5 L (11.2-15.7) gm/dl Hct 33.2 L (34.1-44.9) % MCV 88.1 (79.4-94.8) fl MCH 27.9 (25.6-32.2) pg MCHC 31.6 L (32.2-35.5) g/dl RDW Std Deviation 45.2 (36.4-46.3) fL Plt Count 252 (182-369) K/mm3 MPV 10.0 (9.4-12.3) fl Neut % (Auto) 75.7 H (34.0-71.1) % Lymph % (Auto) 15.1 L (19.3-51.7) % [place] % (Auto) 8.2 (4.7-12.5) % Eos % (Auto) 0.2 L (0.7-5.8) Baso % (Auto) 0.2 (0.1-1.2) % Neut # (Auto) 6.52 H (1.56-6.13) K/mm3 Lymph # (Auto) 1.30 (1.18-3.74) K/mm3 [place] # (Auto) 0.71 H (0.24-0.36) K/mm3 Eos # (Auto) 0.02 L (0.04-0.36) K/mm3 Baso # (Auto) 0.02 (0.01-0.08) K/mm3 POC Glucose 71 (70-105) mg/dL RPR Non-reactive (NONREACTIVE) 06/07/20 06/08/20 Range/Units 17:12 07:04 WBC 11.48 H (3.98-10.04) K/mm3 RBC 2.90 L (3.98-5.22) M/mm3 Hgb 8.0 L D (11.2-15.7) gm/dl Hct 25.7 L (34.1-44.9) % MCV 88.6 (79.4-94.8) fl MCH 27.6 (25.6-32.2) pg MCHC 31.1 L (32.2-35.5) g/dl RDW Std Deviation 45.1 (36.4-46.3) fL Plt Count 201 (182-369) K/mm3 MPV 9.9 (9.4-12.3) fl Neut % (Auto) 79.4 H (34.0-71.1) % Lymph % (Auto) 13.8 L (19.3-51.7) % [place] % (Auto) 5.5 (4.7-12.5) % Eos % (Auto) 0.8 (0.7-5.8) Baso % (Auto) 0.2 (0.1-1.2) % Neut # (Auto) 9.12 H (1.56-6.13) K/mm3 Lymph # (Auto) 1.58 (1.18-3.74) K/mm3 [place] # (Auto) 0.63 H (0.24-0.36) K/mm3 Eos # (Auto) 0.09 (0.04-0.36) K/mm3 Baso # (Auto) 0.02 (0.01-0.08) K/mm3 POC Glucose 89 (70-105) mg/dL RPR (NONREACTIVE) Med Orders - Current: Current Medications Acetaminophen (Acetaminophen 325 Mg Tab) 650 mg PO Q6H PRN PRN Reason: mild pain or fever Benzocaine/Menthol (Benzocaine/Menthol 20%-0.5% Meally 56 Gm Canister) 0 gm TOP ASDIRECTED PRN PRN Reason: Perineal Comfort Measure Last Admin: 06/07/20 20:07 Dose: 1 container Documented by: Docusate Sodium (Docusate Sodium 100 Mg Cap) 100 mg PO BID PRN PRN Reason: Constipation Hydrocortisone Acetate (Hydrocortisone Acetate 25 Mg Supp) 25 mg RECTAL BID PRN PRN Reason: Hemorrhoid pain Oxytocin/Lactated Ringer's (Pitocin In Lr 20 Units/1,000 Ml) 20 unit in 1,000 mls @ 500 mls/hr IV SEECOMMENT SHUKRI Ibuprofen (Ibuprofen 600 Mg Tab) 600 mg PO Q6H PRN PRN Reason: Mild pain or fever Prenat Multivit/[facility]/Iron/Folic Ac ( Multivitamin With Calcium/Folic Acid/Iron Tab) 1 each PO DAILY SHUKRI Witch Cristina (Witch Cristina Medicated Pads 40/Jar) 1 pad TOP ASDIRECTED PRN PRN Reason: Perineal Comfort Measure Last Admin: 06/07/20 20:06 Dose: 1 container Documented by: Discontinued Medications Diphenhydramine HCl (Diphenhydramine 50 Mg/Ml Sdv) 25 mg IVPUSH Q6H PRN PRN Reason: pruritis Ephedrine Sulfate (Ephedrine 50 Mg/Ml Sdv) 5 mg IVPUSH ASDIRECTED PRN PRN Reason: Hypotension Last Admin: 06/07/20 13:03 Dose: 5 mg Documented by: Fentanyl (Fentanyl 100 Mcg/2 Ml Sdv) Confirm Administered Dose 100 mcg .ROUTE .STK-MED ONE Stop: 06/07/20 11:21 Last Admin: 06/07/20 15:24 Dose: Not Given Documented by: Fentanyl (Fentanyl 100 Mcg/2 Ml Sdv) 100 mcg EPIDUR Q3H PRN PRN Reason: Pain Last Admin: 06/07/20 11:49 Dose: 100 mcg Documented by: Fentanyl/Bupivacaine HCl (Bupivacaine/Fentanyl/Ns 100 Ml Bag) 100 ml EPIDUR ASDIRECTED PRN PRN Reason: Pain Last Admin: 06/07/20 12:14 Dose: 100 ml Documented by: Lactated Ringer's (Ringers, Lactated) 1,000 mls @ 100 mls/hr IV ASDIRECTED SHUKRI Last Admin: 06/07/20 12:19 Dose: 100 mls/hr Documented by: Oxytocin/Lactated Ringer's (Pitocin In Lr 10 Units/1,000 Ml) 10 unit in 1,000 mls @ 12 mls/hr IV TITRATE SHUKRI; Protocol Last Titration: 06/07/20 14:01 Dose: 16 munits/min, 96 mls/hr Documented by: Oxytocin/Lactated Ringer's (Pitocin In Lr 20 Units/1,000 Ml) 20 unit in 1,000 mls @ 100 mls/hr IV .CONTINUOUS SHUKRI Last Admin: 06/07/20 18:36 Dose: 100 mls/hr Documented by: Oxytocin/Lactated Ringer's (Pitocin In Lr 10 Units/1,000 Ml) Confirm Administered Dose 10 unit in 1,000 mls @ as directed IV .STK-MED ONE Stop: 06/07/20 18:33 Last Admin: 06/07/20 19:50 Dose: Not Given Documented by: Lidocaine/Epinephrine (Lidocaine 1.5% With Epinephrine 1:200,000 5 Ml Amp) 5 ml .ROUTE .STK-MED ONE Stop: 06/07/20 16:01 Misoprostol (Misoprostol 200 Mcg Tab) 1,000 mcg RECTAL ONETIME ONE Stop: 06/07/20 08:58 Last Admin: 06/07/20 17:52 Dose: 1,000 mcg Documented by: Nalbuphine HCl (Nalbuphine 10 Mg/1 Ml Vial) 10 mg IVPUSH Q2H PRN PRN Reason: Pain Sodium Chloride (Sodium Chloride 0.9% 10 Ml Syringe) 10 ml FLUSH ASDIRECTED PRN PRN Reason: Keep Vein Open - Infant Interaction Infant Disposition, : in Room with Family Feeding: Attempted ; Nursed Fair/Poor Support Person: - Recovery Exam Fundal Tone: Firm Fundal Level: At Umbilicus Fundal Placement: Midline Lochia Amount: Small Lochia Color: Rubra/Red Perineum Description: Intact, Minimal Bruising/Swelling Episiotomy/Laceration: None Bladder Status: Voiding - Exam General: Alert, Oriented GI/Abdominal Exam: Soft, Non-Tender Skin: Warm, Dry, Intact Neurological: No New Focal Deficit Psy/Mental Status: Alert, Normal Affect, Normal Mood - Problem List & Annotations (1) Vaginal delivery SNOMED Code(s): 301812239 Code(s): O80 - ENCOUNTER FOR FULL-TERM UNCOMPLICATED DELIVERY Status: Acute Current Visit: Yes (2) 39 weeks gestation of SNOMED Code(s): 30984735 Code(s): Z3A.39 - 39 WEEKS GESTATION OF Status: Acute Current Visit: No (3) hemorrhage SNOMED Code(s): 63525049 Code(s): O72.1 - OTHER IMMEDIATE HEMORRHAGE Status: Acute Current Visit: Yes - My Orders Last 24 Hours: My Active Orders 06/07/20 18:29 Acetaminophen [TylenoL] 650 mg PO Q6H PRN Benzocaine/Menthol [Dermoplast Pain Relief Meally] See Dose Instructions TOP ASDIRECTED PRN Docusate Sodium [Colace] 100 mg PO BID PRN Hydrocortisone Acetate [Anucort-HC] 25 mg RECTAL BID PRN Ibuprofen [Motrin] 600 mg PO Q6H PRN witch Cristina [Tucks] 1 pad TOP ASDIRECTED PRN 06/07/20 18:29 Patient Status [ADT] Routine Activity as Tolerated [RC] PER UNIT ROUTINE May Shower [RC] ASDIRECTED Notify Provider Vital Signs [RC] ASDIRECTED Vital Signs [RC] ,,, Assess Lochia [WOMSER] Per Unit Routine Assess Uterine Involution [WOMSER] Per Unit Routine Breast Pump [WOMSER] Per Unit Routine Ice Therapy [OM.PC] Per Unit Routine Medication Administration Instruction [OM.PC] Routine Perineal Care [OM.PC] Per Unit Routine Peripheral IV Discontinue [OM.PC] Routine Sitz Bath [OM.PC] Per Unit Routine 06/07/20 18:30 Oxytocin/Lactated Ringers [Pitocin in LR 20 Units/1,000 ML] 20 unit in 1,000 ml IV SEECOMMENT Heat Therapy [OM.PC] PRN 06/08/20 09:00 Vit with Ca/FA/Iron [ Plus Iron] 1 each PO DAILY 06/08/20 18:30 Heat Therapy [OM.PC] PRN - Assessment Assessment:: of a live male infant weighing 3040 g (6 lbs 11.2 ounces) at 1744 on 06/07/20 in the [facility] with APGARs of 8/9 to a 34-year-old -0-3-4 female at 39 weeks 2 days ([facility] 06/12/2020) by an 11-week ultrasound who presented for an elective induction of labor. - Plan Plan:: Kelly Coleman is a 34-year-old -0-3-4 female at 39 weeks 2 days ([facility] 06/12/2020) by an 11-week ultrasound who presents for an elective induction of labor. PPD#1 of a live male infant weighing 3040 g (6 lbs 11.2 ounces) at 1744 on 06/07/20 in the [facility] with APGARs of 8/9. Rectal Cytotec 1000 micrograms placed for concerns of hemorrhage - initial hemoglobin 10.5, repeat hemoglobin this am 8.0 care per unit routine Regular diet Activity as tolerated Plans to breast-feed Anticipate discharge in 24 hours pending robotype operator's recommendation <Biju Sanchez F - Last Filed: 06/09/20 01:04> - Patient Data Vital Signs - Most Recent: Last Vital Signs Temp 36.7 C 06/08/20 22:08 Pulse 87 06/08/20 22:08 Resp 14 06/08/20 22:08 BP 131/69 06/08/20 22:08 Pulse Ox 96 06/08/20 22:08 I&O - Last 24 Hours: Intake & Output 06/08/20 06/08/20 06/09/20 14:59 22:59 06:59 Intake Total 120 Output Total 115 Balance -115 120 Lab Results - Last 24 Hours: Laboratory Results - last 24 hr 06/08/20 Range/Units 07:04 WBC 11.48 H (3.98-10.04) K/mm3 RBC 2.90 L (3.98-5.22) M/mm3 Hgb 8.0 L D (11.2-15.7) gm/dl Hct 25.7 L (34.1-44.9) % MCV 88.6 (79.4-94.8) fl MCH 27.6 (25.6-32.2) pg MCHC 31.1 L (32.2-35.5) g/dl RDW Std Deviation 45.1 (36.4-46.3) fL Plt Count 201 (182-369) K/mm3 MPV 9.9 (9.4-12.3) fl Neut % (Auto) 79.4 H (34.0-71.1) % Lymph % (Auto) 13.8 L (19.3-51.7) % [place] % (Auto) 5.5 (4.7-12.5) % Eos % (Auto) 0.8 (0.7-5.8) Baso % (Auto) 0.2 (0.1-1.2) % Neut # (Auto) 9.12 H (1.56-6.13) K/mm3 Lymph # (Auto) 1.58 (1.18-3.74) K/mm3 [place] # (Auto) 0.63 H (0.24-0.36) K/mm3 Eos # (Auto) 0.09 (0.04-0.36) K/mm3 Baso # (Auto) 0.02 (0.01-0.08) K/mm3 Med Orders - Current: Current Medications Acetaminophen (Acetaminophen 325 Mg Tab) 650 mg PO Q6H PRN PRN Reason: mild pain or fever Benzocaine/Menthol (Benzocaine/Menthol 20%-0.5% Meally 56 Gm Canister) 0 gm TOP ASDIRECTED PRN PRN Reason: Perineal Comfort Measure Last Admin: 06/07/20 20:07 Dose: 1 container Documented by: Docusate Sodium (Docusate Sodium 100 Mg Cap) 100 mg PO BID PRN PRN Reason: Constipation Hydrocortisone Acetate (Hydrocortisone Acetate 25 Mg Supp) 25 mg RECTAL BID PRN PRN Reason: Hemorrhoid pain Oxytocin/Lactated Ringer's (Pitocin In Lr 20 Units/1,000 Ml) 20 unit in 1,000 mls @ 500 mls/hr IV SEECOMMENT SHUKRI Ibuprofen (Ibuprofen 600 Mg Tab) 600 mg PO Q6H PRN PRN Reason: Mild pain or fever Prenat Multivit/[facility]/Iron/Folic Ac ( Multivitamin With Calcium/Folic Acid/Iron Tab) 1 each PO DAILY SHUKRI Last Admin: 06/08/20 17:22 Dose: Not Given Documented by: Elena Evans (Elena Evans Medicated Pads 40/Jar) 1 pad TOP ASDIRECTED PRN PRN Reason: Perineal Comfort Measure Last Admin: 06/07/20 20:06 Dose: 1 container Documented by: Discontinued Medications Diphenhydramine HCl (Diphenhydramine 50 Mg/Ml Sdv) 25 mg IVPUSH Q6H PRN PRN Reason: pruritis Ephedrine Sulfate (Ephedrine 50 Mg/Ml Sdv) 5 mg IVPUSH ASDIRECTED PRN PRN Reason: Hypotension Last Admin: 06/07/20 13:03 Dose: 5 mg Documented by: Fentanyl (Fentanyl 100 Mcg/2 Ml Sdv) Confirm Administered Dose 100 mcg .ROUTE .[facility] ONE Stop: 06/07/20 11:21 Last Admin: 06/07/20 15:24 Dose: Not Given Documented by: Fentanyl (Fentanyl 100 Mcg/2 Ml Sdv) 100 mcg EPIDUR Q3H PRN PRN Reason: Pain Last Admin: 06/07/20 11:49 Dose: 100 mcg Documented by: Fentanyl/Bupivacaine HCl (Bupivacaine/Fentanyl/Ns 100 Ml Bag) 100 ml EPIDUR ASDIRECTED PRN PRN Reason: Pain Last Admin: 06/07/20 12:14 Dose: 100 ml Documented by: Lactated Ringer's (Ringers, Lactated) 1,000 mls @ 100 mls/hr IV ASDIRECTED SHUKRI Last Admin: 06/07/20 12:19 Dose: 100 mls/hr Documented by: Oxytocin/Lactated Ringer's (Pitocin In Lr 10 Units/1,000 Ml) 10 unit in 1,000 mls @ 12 mls/hr IV TITRATE SHUKRI; Protocol Last Titration: 06/07/20 14:01 Dose: 16 munits/min, 96 mls/hr Documented by: Oxytocin/Lactated Ringer's (Pitocin In Lr 20 Units/1,000 Ml) 20 unit in 1,000 mls @ 100 mls/hr IV .CONTINUOUS SHUKRI Last Admin: 06/07/20 18:36 Dose: 100 mls/hr Documented by: Oxytocin/Lactated Ringer's (Pitocin In Lr 10 Units/1,000 Ml) Confirm Administered Dose 10 unit in 1,000 mls @ as directed IV .STK-MED ONE Stop: 06/07/20 18:33 Last Admin: 06/07/20 19:50 Dose: Not Given Documented by: Lidocaine/Epinephrine (Lidocaine 1.5% With Epinephrine 1:200,000 5 Ml Amp) 5 ml .ROUTE .STK-MED ONE Stop: 06/07/20 16:01 Misoprostol (Misoprostol 200 Mcg Tab) 1,000 mcg RECTAL ONETIME ONE Stop: 06/07/20 08:58 Last Admin: 06/07/20 17:52 Dose: 1,000 mcg Documented by: Nalbuphine HCl (Nalbuphine 10 Mg/1 Ml Vial) 10 mg IVPUSH Q2H PRN PRN Reason: Pain Sodium Chloride (Sodium Chloride 0.9% 10 Ml Syringe) 10 ml FLUSH ASDIRECTED PRN PRN Reason: Keep Vein Open - Problem List Review Problem List Initiated/Reviewed/Updated: Yes
--- NOTE | 2020-06-08 13:06 | PCM48HPAN ---
Post Anesthesia Note - EVALUATION WITHIN 48HRS OF ANESTHETIC Vital Signs in Normal Range: Yes Patient Participated in Evaluation: Yes Respiratory Function Stable: Yes Airway Patent: Yes Cardiovascular Function Stable: Yes Hydration Status Stable: Yes Pain Control Satisfactory: Yes Nausea and Vomiting Control Satisfactory: Yes Mental Status Recovered: Yes Vital Signs: Last Vital Signs Temp 36.8 C 06/08/20 08:18 Pulse 97 06/08/20 08:18 Resp 16 06/08/20 08:18 BP 117/71 06/08/20 08:18 Pulse Ox 99 06/08/20 08:18
[2020-06-08] MEDS: Prenatal Multivitamin with Calcium/Folic Acid/Iron Tab PO SCH (17:22)
--- NOTE | 2020-06-09 07:57 | PCM.DCSUM1 ---
Discharge Summary - Hospital Course Free Text/Narrative:: Stage I: Kelly Coleman is a 34-year-old -0-3-4 female at 39 weeks 2 days ([facility] 06/12/2020) by an 11-week ultrasound who presents for an elective induction of labor. Pitocin was given, an epidural was placed and AROM was performed with clear fluid. The patient progressed to complete and pushing. Stage II: of a live male infant weighing 3040 g (6 lbs 11.2 ounces) at 1744 on 06/07/20 in the [facility] with APGARs of 8/9. No nuchal cord present. The infant was placed on the mother's abdomen and was warmed and stimulated. The cord was clamped and cut by the infant's father after a period of delayed cord clamping. Stage III: Placenta was delivered intact, spontaneous. Noted three vessel cord. The vaginal mucosa was inspected and no lacerations were seen. EBL of 1000 mL. Rectal cytotec 1000 micrograms was placed rectally, and Pitocin was started. Fundal massage demonstrated a firm uterus without active bleeding. Mother and infant stable to recovery. patient has done well Because of her blood loss hemoglobin was obtained on the first day and returned at 8.0. Follow-up CBC was done on day 2 shows white count of 10.3 hemoglobin of 7.5 and platelets of 205,000. Patient this time is doing very well she is ambulating well. She is nursing without problems. She has minimal lochia and no evidence of continued bleeding. She is afebrile with normal vital signs. She is desiring discharge home. Diagnosis: Stroke: No - Discharge Data Discharge Date: 06/09/20 Discharge Disposition: Home, Self-Care 01 Condition: Good - Referral to Home Health Primary Care Physician: Roland Bryan MD - Patient Instructions Diet: Regular Diet as Tolerated (Nursing diet with increased calories and calcium. Increased dietary iron intake.) Activity: As Tolerated (No intercourse or tampons until bleeding resolves.) Driving: May Drive Today Showering/Bathing: May Shower Showering/Bathing, Other: Patient may take a bath Notify Provider of: Fever, Increased Pain, Swelling and Redness, Nausea and/or Vomiting - Discharge Plan Prescriptions/Med Rec: Ferrous Sulfate 325 mg PO BID #100 tablet Home Medications: Home Meds Acetaminophen [Tylenol] 650 mg PO Q6H PRN tablet 06/09/20 [Rx] Ferrous Sulfate 325 mg PO BID #100 tablet 06/09/20 [Rx] Ibuprofen [Motrin] 600 mg PO Q6H PRN tablet 06/09/20 [Rx] Vit with Ca/FA/Iron [ Plus Iron] 1 each PO DAILY tablet 06/09/20 [Rx] Referrals: Roland Bryan MD [Primary Care Provider] - (Return to clinicDr. Bryan2 weeks.) - Discharge Summary/Plan Comment DC Time >30 min.: No Discharge Summary/Plan Comment: Discharge instructions: 1. Discharge home 2. Diet, activity and follow-up discussed with patient. Recommend nursing diet with increased calories and calcium. 3. Precautions given concern increased pain, bleeding, temperature, signs/symptoms of DVT/PE. 4. Medications per home medication was printed, discussed with and given to the patient. 5. Return to clinic-Dr. Bryan-[facility] in 2 weeks. Diagnosis: 1. Term -delivered 2. Anemia secondary to and blood loss at time of delivery. Condition: Good - Patient Data Vitals - Most Recent: Last Vital Signs Temp 36.7 C 06/09/20 04:35 Pulse 86 06/09/20 04:35 Resp 12 06/09/20 04:35 BP 110/75 06/09/20 04:35 Pulse Ox 97 06/09/20 04:35 Weight - Most Recent: 84.368 kg I&O - Last 24 hours: Intake & Output 06/08/20 06/09/20 06/09/20 22:59 06:59 14:59 Intake Total 120 Balance 120 Lab Results - Last 24 hrs: Laboratory Results - last 24 hr 06/07/20 06/09/20 Range/Units 09:11 06:00 WBC 10.30 H (3.98-10.04) K/mm3 RBC 2.72 L (3.98-5.22) M/mm3 Hgb 7.5 L (11.2-15.7) gm/dl Hct 24.4 L (34.1-44.9) % MCV 89.7 (79.4-94.8) fl MCH 27.6 (25.6-32.2) pg MCHC 30.7 L (32.2-35.5) g/dl RDW Std Deviation 45.8 (36.4-46.3) fL Plt Count 205 (182-369) K/mm3 MPV 9.8 (9.4-12.3) fl Hepatitis C Antibody <0.1 (0.0-0.9) s/co ratio Med Orders - Current: Current Medications Acetaminophen (Acetaminophen 325 Mg Tab) 650 mg PO Q6H PRN PRN Reason: mild pain or fever Benzocaine/Menthol (Benzocaine/Menthol 20%-0.5% Marceline 56 Gm Canister) 0 gm TOP ASDIRECTED PRN PRN Reason: Perineal Comfort Measure Last Admin: 06/07/20 20:07 Dose: 1 container Documented by: Docusate Sodium (Docusate Sodium 100 Mg Cap) 100 mg PO BID PRN PRN Reason: Constipation Hydrocortisone Acetate (Hydrocortisone Acetate 25 Mg Supp) 25 mg RECTAL BID PRN PRN Reason: Hemorrhoid pain Oxytocin/Lactated Ringer's (Pitocin In Lr 20 Units/1,000 Ml) 20 unit in 1,000 mls @ 500 mls/hr IV SEECOMMENT [facility] Ibuprofen (Ibuprofen 600 Mg Tab) 600 mg PO Q6H PRN PRN Reason: Mild pain or fever Prenat Multivit/[place]/Iron/Folic Ac ( Multivitamin With Calcium/Folic Acid/Iron Tab) 1 each PO DAILY [facility] Last Admin: 06/08/20 17:22 Dose: Not Given Documented by: Elena Evans (Elena Evans Medicated Pads 40/Jar) 1 pad TOP ASDIRECTED PRN PRN Reason: Perineal Comfort Measure Last Admin: 06/07/20 20:06 Dose: 1 container Documented by: Discontinued Medications Diphenhydramine HCl (Diphenhydramine 50 Mg/Ml Sdv) 25 mg IVPUSH Q6H PRN PRN Reason: pruritis Ephedrine Sulfate (Ephedrine 50 Mg/Ml Sdv) 5 mg IVPUSH ASDIRECTED PRN PRN Reason: Hypotension Last Admin: 06/07/20 13:03 Dose: 5 mg Documented by: Fentanyl (Fentanyl 100 Mcg/2 Ml Sdv) Confirm Administered Dose 100 mcg .ROUTE .STK-MED ONE Stop: 06/07/20 11:21 Last Admin: 06/07/20 15:24 Dose: Not Given Documented by: Fentanyl (Fentanyl 100 Mcg/2 Ml Sdv) 100 mcg EPIDUR Q3H PRN PRN Reason: Pain Last Admin: 06/07/20 11:49 Dose: 100 mcg Documented by: Fentanyl/Bupivacaine HCl (Bupivacaine/Fentanyl/Ns 100 Ml Bag) 100 ml EPIDUR ASDIRECTED PRN PRN Reason: Pain Last Admin: 06/07/20 12:14 Dose: 100 ml Documented by: Lactated Ringer's (Ringers, Lactated) 1,000 mls @ 100 mls/hr IV ASDIRECTED SHUKRI Last Admin: 06/07/20 12:19 Dose: 100 mls/hr Documented by: Oxytocin/Lactated Ringer's (Pitocin In Lr 10 Units/1,000 Ml) 10 unit in 1,000 mls @ 12 mls/hr IV TITRATE SHUKRI; Protocol Last Titration: 06/07/20 14:01 Dose: 16 munits/min, 96 mls/hr Documented by: Oxytocin/Lactated Ringer's (Pitocin In Lr 20 Units/1,000 Ml) 20 unit in 1,000 mls @ 100 mls/hr IV .CONTINUOUS SHUKRI Last Admin: 06/07/20 18:36 Dose: 100 mls/hr Documented by: Oxytocin/Lactated Ringer's (Pitocin In Lr 10 Units/1,000 Ml) Confirm Administered Dose 10 unit in 1,000 mls @ as directed IV .STK-MED ONE Stop: 06/07/20 18:33 Last Admin: 06/07/20 19:50 Dose: Not Given Documented by: Lidocaine/Epinephrine (Lidocaine 1.5% With Epinephrine 1:200,000 5 Ml Amp) 5 ml .ROUTE .STK-MED ONE Stop: 06/07/20 16:01 Misoprostol (Misoprostol 200 Mcg Tab) 1,000 mcg RECTAL ONETIME ONE Stop: 06/07/20 08:58 Last Admin: 06/07/20 17:52 Dose: 1,000 mcg Documented by: Nalbuphine HCl (Nalbuphine 10 Mg/1 Ml Vial) 10 mg IVPUSH Q2H PRN PRN Reason: Pain Sodium Chloride (Sodium Chloride 0.9% 10 Ml Syringe) 10 ml FLUSH ASDIRECTED PRN PRN Reason: Keep Vein Open
[2020-06-09] MEDS: Prenatal Multivitamin with Calcium/Folic Acid/Iron Tab PO SCH (10:03)
[2020-06-09 10:18] VITALS: BP 118/74; PULSE 98
== END 2020-06-09 14:55 | disposition home or self-care (01) | DRG 560 ==
LOC: JD.OB 07:07 → OBSVTOIN 17:44 → JD.OB 17:44
PROVIDERS: ADMIT Obstetrics & Gynecology; ATTEND Obstetrics & Gynecology
PROC: 10E0XZZ Delivery of Products of Conception, External Approach (ICD-10-PCS; principal; 2020-06-07)
PROC: 10907ZC Drainage of Amniotic Fluid, Therapeutic from Products of Conception, Via Natural or Artificial Opening (ICD-10-PCS; 2020-06-07)
PROC: 3E0R3BZ Introduction of Anesthetic Agent into Spinal Canal, Percutaneous Approach (ICD-10-PCS; 2020-06-07)
PROC: 00HU33Z Insertion of Infusion Device into Spinal Canal, Percutaneous Approach (ICD-10-PCS; 2020-06-07)
DX: O99.02 Anemia complicating childbirth (principal); O72.1 Other immediate postpartum hemorrhage; D62 Acute posthemorrhagic anemia; Z3A.39 39 weeks gestation of pregnancy; Z37.0 Single live birth; N87.1 Moderate cervical dysplasia; Z20.822 Contact with and (suspected) exposure to COVID-19
CPT/HCPCS: 01967; 36415; 51702; 59025; 59409; 82962; 85025; 85027; 86592; 86803; 86850; 86900; 86901; A9270-GY; J2590; J3010; J7120; U0002

== ENCOUNTER 2023-03-10 06:56 | Inpatient (IN) | payer BC ==
[2023-03-10] MEDS ORDERED: Nalbuphine HCl 10 MG/ 1ML Amp IVPUSH PRN (07:48)
[2023-03-10] MEDS ORDERED: Lidocaine 1% 50 ML MDV INJECT PRN (07:48)
[2023-03-10] MEDS ORDERED: Ondansetron 4 MG/2 ML SDV IVPUSH PRN (07:48)
[2023-03-10] MEDS ORDERED: Oxytocin/Lactated Ringers 30 UNIT/500 ML BAG IV SCH ×3 (08:00→21:06)
[2023-03-10] MEDS: Lactated Ringers 1,000 ML IV SCH ×3 (08:20→16:49)
[2023-03-10 08:25] LABS: BASOPHILS PERCENT AUTO 0.3 % (0.0-1.0); EOSINOPHILS PERCENT AUTO 0.3 % (0.0-6.0); HEMATOCRIT 33.4 % (37.0-47.0); HEMOGLOBIN 10.8 gm/dl (12.0-16.0); IMMATURE GRAN ABSOLUTE AUTO 0.09 K/mm3 (0.00-0.05); IMMATURE GRAN PERCENT AUTO 0.9 % (0.0-0.4); LYMPHOCYTES ABSOLUTE AUTO 1.6 K/mm3 (1.0-4.8); MEAN CORPUSCULAR HEMOGLOBIN 27.3 pg (28.0-32.0); MEAN CORPUSCULAR HGB CONC 32.3 g/dl (32.0-36.0); MEAN CORPUSCULAR VOLUME 84.3 fl (83.0-99.0); MEAN PLATELET VOLUME 9.5 fl (9.4-12.3); MONOCYTES ABSOLUTE AUTO 0.5 K/mm3 (0.0-0.8); MONOCYTES PERCENT AUTO 4.7 % (0.0-8.0); NEUTROPHILS ABSOLUTE AUTO 8.2 K/mm3 (1.8-7.7); NEUTROPHILS PERCENT AUTO 78.8 % (41.0-71.0); PLATELET COUNT,PLT 252 K/mm3 (150-400); RED BLOOD CELL COUNT 3.96 M/mm3 (4.10-5.30); WHITE BLOOD CELL COUNT,WBC 10.37 K/mm3 (3.9-11.3)
[2023-03-10] MEDS ORDERED: fentaNYL 100 MCG/2 ML SDV EPIDUR PRN (13:58)
[2023-03-10] MEDS ORDERED: Bupivacaine/fentaNYL/NS 100 ML Bag EPIDUR PRN (13:58)
[2023-03-10] MEDS ORDERED: ePHEDrine 50 MG/ML SDV IVPUSH PRN (13:58)
[2023-03-10] MEDS ORDERED: diphenhydrAMINE 50 MG/ML SDV IVPUSH PRN (13:58)
[2023-03-10] MEDS ORDERED: Witch Hazel Medicated Pads 40/Jar TOP PRN (21:06)
[2023-03-10] MEDS ORDERED: Hydrocortisone Acetate 25 MG Supp RECTAL PRN (21:06)
[2023-03-10] MEDS ORDERED: Benzocaine/Menthol 20%-0.5% Spray 78 GM Cannister TOP PRN (21:06)
[2023-03-10] MEDS ORDERED: Acetaminophen 325 MG Tab PO PRN (21:06)
[2023-03-10] MEDS ORDERED: Docusate Sodium 100 MG Cap PO PRN (21:06)
[2023-03-10] MEDS ORDERED: Ibuprofen 600 MG Tab PO PRN (21:06)
[2023-03-10] MEDS ORDERED: Magnesium Hydroxide 400 MG/5 ML Susp 30 ML Cup PO PRN (21:06)
[2023-03-11] MEDS: Sodium Chloride 0.9% 10 ML Syringe FLUSH SCH ×2 (14:43→14:45)
[2023-03-11] MEDS: Prenatal Multivitamin with Calcium/Folic Acid/Iron Tab PO SCH (14:43)
[2023-03-12 15:18] VITALS: BP 126/72; PULSE 94
[2023-03-12] MEDS: Prenatal Multivitamin with Calcium/Folic Acid/Iron Tab PO SCH (15:20)
== END 2023-03-12 11:55 | disposition home or self-care (01) | DRG 560 ==
LOC: JD.OB 06:56 → UNDOADMOB 06:56 → JD.OB 06:57 → OBSVTOIN 20:20 → JD.OB 20:50
PROVIDERS: ADMIT Obstetrics & Gynecology; ATTEND Obstetrics & Gynecology
PROC: 10E0XZZ Delivery of Products of Conception, External Approach (ICD-10-PCS; principal; 2023-03-10)
PROC: 10907ZC Drainage of Amniotic Fluid, Therapeutic from Products of Conception, Via Natural or Artificial Opening (ICD-10-PCS; 2023-03-10)
PROC: 0HQ9XZZ Repair Perineum Skin, External Approach (ICD-10-PCS; 2023-03-10)
PROC: 3E0R3BZ Introduction of Anesthetic Agent into Spinal Canal, Percutaneous Approach (ICD-10-PCS; 2023-03-10)
PROC: 00HU33Z Insertion of Infusion Device into Spinal Canal, Percutaneous Approach (ICD-10-PCS; 2023-03-10)
DX: O70.0 First degree perineal laceration during delivery (principal); Z37.0 Single live birth; Z3A.39 39 weeks gestation of pregnancy; O69.81X0 Labor and delivery complicated by cord around neck, without compression, not applicable or unspecified
CPT/HCPCS: 36415; 51702; 59025; 59409; 85025; 86592; A9270-GY; C1726; J3010; J3490; J7120; J7999